=== PATIENT | female | born 1995 | race Caucasian/White ===

== ENCOUNTER 2016-12-01 06:36 | Emergency (ER) | payer OTHER | END 2016-12-01 09:07 | disposition home or self-care (01) | LOC: FER 06:36 | DX: G43.909 Migraine, unspecified, not intractable, without status migrainosus (principal); G89.29 Other chronic pain; Z88.2 Allergy status to sulfonamides; Z88.5 Allergy status to narcotic agent; Z79.899 Other long term (current) drug therapy | CPT/HCPCS: J1100; J1885 ==

== ENCOUNTER 2020-08-01 17:47 | Emergency (ER) | payer OTHER ==
[~2020-08-01 17:47] MED LIST: CARTIA PO; CETIRIZINE HCL10 M1 PO; CYMBALTA60 MG PO; DAPSONE100 MG PO; DAPSONE25 MG PO; DOXEPIN HCL150 MG PO; EPIPEN0.3 MG/0.3 IJ; FLEXERIL10 MG PO; INDERAL LA80 MG PO; KLONOPIN0.5 MG PO; LAMICTAL200 MG PO; MELATONIN10 MG PO; NEURONTIN300 MG PO; NORCO 5/3251 EACH PO; OGESTREL TABLE1 EACH PO; OMEPRAZOLE40 MG PO; PHENERGAN25 M1 PO; SINEQUAN50 MG PO; [UNRECOGNIZED DRUG - OTHER] PO
[2020-08-01 18:55] LABS: BASOPHIL 0.6 % (0-2); EOSINOPHIL 1.2 % (0-5); HCT 33.3 % (37.0-47.0); HGB 10.5 g/dl (12.5-16.0); MCH 31.3 pg (25.0-31.0); MCHC 31.5 g/dL (32.0-36.0); MCV 99.1 fL (78.0-100.0); MONOCYTE 5.7 % (0-12); MPV 10.9 fL (6.0-9.5); NEUTROPHIL 56.3 % (41-80); NRBC 0; PLT 272 K/uL (150-400); RBC 3.36 M/uL (4.20-5.40); RDW 13.3 % (11.5-14.0); WBC 8.3 K/uL (4.0-10.5)
[2020-08-01 19:07] LABS: INR 0.96 (0.9-1.2); PROTHROMBIN TIME 12.1 SECONDS (11.4-13.6); PTT 25.3 SECONDS (22.2-34.7)
[2020-08-01 19:08] LABS: D-DIMER 1.32 ug/mLFEU (0.00-0.41)
[2020-08-01 19:13] LABS: ALBUMIN 3.1 g/dL (3.4-5.0); BILIRUBIN - TOTAL 0.4 mg/dL (0.2-1.0); BUN/CREAT RATIO (CALC) 16.4 RATIO; CREATININE 0.67 mg/dL (0.51-0.95); GLOBULIN (CALCULATION) 3.9 g/dL; POTASSIUM 4.7 mmol/L (3.5-5.1)
[2020-08-01 20:20] LABS: PRO-BNP 95 pg/mL (<125)
[2020-08-01 20:21] LABS: LDH 382 U/L (81-234)
[2020-08-01] MEDS ORDERED: VENTOLIN HFA IN18 GM INH (21:07)
[2020-08-01] MEDS ORDERED: BROMFED DM COU473 ML PO (21:07)
[2020-08-01] MEDS ORDERED: ZPAK PO (21:07)
[2020-08-01] MEDS ORDERED: PULMICORT FLE180 MCG INH (21:07)
== END 2020-08-01 21:25 | disposition home or self-care (01) ==
LOC: FER 17:47
PROVIDERS: Emergency Medicine; Emergency Medicine Emergency Medical Services
DX: U07.1 COVID-19 (principal); I49.8 Other specified cardiac arrhythmias; Z88.5 Allergy status to narcotic agent; Z88.2 Allergy status to sulfonamides
CPT/HCPCS: 36415; 36600; 71046; 71275; 80053; 82728; 82803; 83615; 83880; 84484; 85025; 85379; 85610; 85730; 93005; 94640; 94664; Q9967

== ENCOUNTER 2020-11-08 10:24 | Emergency (ER) | payer OTHER ==
[~2020-11-08 10:24] MED LIST changes: +BROMFED DM COU473 ML PO; +PULMICORT FLE180 MCG INH; +VENTOLIN HFA IN18 GM INH; +ZPAK PO
[2020-11-08 11:03] LABS: BILIRUBIN NEGATIVE (NEGATIVE); BLOOD TRACE-INTACT Ery/uL (NEGATIVE); CLARITY CLEAR (CLEAR); COLOR YELLOW (YELLOW); GLUCOSE (U) NORMAL (NORMAL); LEUKOCYTES TRACE Leu/uL (NEGATIVE); NITRITE NEGATIVE (NEGATIVE); PROTEIN 1+ mg/dL (NEGATIVE); SPECIFIC GRAVITY 1.025 (1.001-1.030); pH 6.5 (5.0-9.0)
[2020-11-08 11:07] LABS: AMPHETAMINES NEGATIVE (NEGATIVE); BARBITURATES NEGATIVE (NEGATIVE); ECSTASY (MDMA) NEGATIVE (NEGATIVE); MARIJUANA (THC) NEGATIVE (NEGATIVE); METHADONE NEGATIVE (NEGATIVE); OPIATES POSITIVE (NEGATIVE); OXYCODONE NEGATIVE (NEGATIVE)
[2020-11-08 11:11] LABS: BACTERIA 1+
[2020-11-08 11:22] LABS: BASOPHIL 0.3 % (0-2); EOSINOPHIL 12.1 % (0-5); HCT 29.7 % (37.0-47.0); HGB 9.7 g/dl (12.5-16.0); MCH 32.6 pg (25.0-31.0); MCHC 32.7 g/dL (32.0-36.0); MCV 99.7 fL (78.0-100.0); MONOCYTE 5.4 % (0-12); MPV 10.6 fL (6.0-9.5); NEUTROPHIL 61.6 % (41-80); NRBC 0; PLT 234 K/uL (150-400); RBC 2.98 M/uL (4.20-5.40); RDW 13.2 % (11.5-14.0); WBC 14.4 K/uL (4.0-10.5)
[2020-11-08 11:34] LABS: BUN/CREAT RATIO (CALC) 15.8 RATIO; CREATININE 0.76 mg/dL (0.51-0.95); POTASSIUM 3.6 mmol/L (3.5-5.1)
[2021-03-16] MEDS ORDERED: CORLANOR5 MG/5 ML PO (07:14)
[2021-03-16] MEDS ORDERED: TIZANIDINE HCL4 M1 PO (07:14)
[2021-03-16] MEDS ORDERED: PERCOCET 5-3251 EACH PO (07:16)
[2021-03-16] MEDS ORDERED: SEROQUEL 100MG100 MG PO (07:17)
[2021-03-16] MEDS ORDERED: FLORANEX TABLE1 EACH PO (07:18)
[2021-03-16] MEDS ORDERED: WELLBUTRIN XL150 MG PO (07:18)
[2021-03-16] MEDS ORDERED: MELATONIN5 M2 PO (07:18)
[2021-03-16] MEDS ORDERED: VITAMIN D310 MC3 PO (07:19)
[2021-03-16] MEDS ORDERED: B-COMPLEX TABL0.4 MG PO (07:19)
[2021-03-16] MEDS ORDERED: PEPCID AC20 MG PO (07:20)
== END 2020-11-08 12:20 | disposition home or self-care (01) ==
LOC: FER 10:24
PROVIDERS: Emergency Medicine
DX: B34.9 Viral infection, unspecified (principal); Z20.822 Contact with and (suspected) exposure to COVID-19
CPT/HCPCS: 36415; 71046; 80048; 80305; 81001; 85025; U0002

== ENCOUNTER 2021-02-02 11:57 | Emergency (ER) | payer OTHER ==
[2021-03-16] MEDS ORDERED: TIZANIDINE HCL4 M1 PO (07:14)
[2021-03-16] MEDS ORDERED: CORLANOR5 MG/5 ML PO (07:14)
[2021-03-16] MEDS ORDERED: PERCOCET 5-3251 EACH PO (07:16)
[2021-03-16] MEDS ORDERED: SEROQUEL 100MG100 MG PO (07:17)
[2021-03-16] MEDS ORDERED: FLORANEX TABLE1 EACH PO (07:18)
[2021-03-16] MEDS ORDERED: MELATONIN5 M2 PO (07:18)
[2021-03-16] MEDS ORDERED: WELLBUTRIN XL150 MG PO (07:18)
[2021-03-16] MEDS ORDERED: VITAMIN D310 MC3 PO (07:19)
[2021-03-16] MEDS ORDERED: B-COMPLEX TABL0.4 MG PO (07:19)
[2021-03-16] MEDS ORDERED: PEPCID AC20 MG PO (07:20)
== END 2021-02-02 16:20 | disposition home or self-care (01) ==
LOC: FER 11:57
DX: G89.29 Other chronic pain (principal); M25.511 Pain in right shoulder
CPT/HCPCS: 96372; J0595; J1040; J1885

== ENCOUNTER → 2021-03-16 | Day surgery (SDC) | payer OTHER ==
[~2021-03-16] VITALS: Ht 162.6 cm; Wt 104.4 kg
[~2021-03-16] MED LIST changes: +B-COMPLEX TABL0.4 MG PO; +CORLANOR5 MG/5 ML PO; +FLORANEX TABLE1 EACH PO; +MELATONIN5 M2 PO; +PEPCID AC20 MG PO; +PERCOCET 5-3251 EACH PO; +SEROQUEL 100MG100 MG PO; +TIZANIDINE HCL4 M1 PO; +VITAMIN D310 MC3 PO; +WELLBUTRIN XL150 MG PO
[2021-03-16 07:09] LABS: HCG (URINE) SCREEN NEGATIVE (NEGATIVE)
[2021-03-16 08:10] LABS: HCT 34.1 % (37.0-47.0); HGB 10.9 g/dl (12.5-16.0); MCH 33.9 pg (25.0-31.0); MCV 105.9 fL (78.0-100.0); MPV 10.3 fL (6.0-9.5); RBC 3.22 M/uL (4.20-5.40); RDW 13.5 % (11.5-14.0); WBC 10.1 K/uL (4.0-10.5)
[2021-03-16 08:27] LABS: ALBUMIN 3.6 g/dL (3.4-5.0); BILIRUBIN - TOTAL 0.4 mg/dL (0.2-1.0); BUN/CREAT RATIO (CALC) 23.3 RATIO; CREATININE 0.6 mg/dL (0.51-0.95); GLOBULIN (CALCULATION) 3.5 g/dL; POTASSIUM 3.6 mmol/L (3.5-5.1); TOTAL PROTEIN 7.1 g/dL (6.4-8.2)
== END | disposition home or self-care (01) ==
LOC: FAS 06:50
PROVIDERS: Anesthesiology; Surgery
DX: D70.4 Cyclic neutropenia (principal); D53.9 Nutritional anemia, unspecified; J45.909 Unspecified asthma, uncomplicated; F41.9 Anxiety disorder, unspecified; E66.9 Obesity, unspecified; Z68.39 Body mass index [BMI] 39.0-39.9, adult; Z88.2 Allergy status to sulfonamides; Z88.5 Allergy status to narcotic agent; Z91.030 Bee allergy status; Z79.899 Other long term (current) drug therapy
CPT/HCPCS: 36415; 80053; 84703; 93005; J1642; J2250; J2704; J7120